=== PATIENT | female | born 1945 | race Caucasian/White ===

== ENCOUNTER → 2017-09-13 | Outpatient (CLI) | payer OTHER, BC ==
[~2017-09-13] VITALS: Ht 165.1 cm; Wt 99.8 kg
[~2017-09-13] MED LIST: AMLODIPINE BESY10 MG PO; CYMBALTA60 MG PO; HYDROCHLOROTHIA25 M2 PO; HYDROCODON-ACE1 EAC7 PO; MOBIC15 MG PO; OMEPRAZOLE 20 M20 M1 PO; POTASSIUM CHLO20 ME1 PO; SIMVASTATIN40 MG PO; SINGULAIR 10 MG10 M1 PO; ZOLPIDEM TARTRA10 MG PO
--- NOTE | ~2017-09-13 | P ---
[facility] [address] PROCEDURE REPORT Name: MILVIAKARTIK Jung Room #: REG [facility]#: [id number] Admission: 09/13/17 Attend Phys: Dustin Chiu Discharge: Date of : 49 Report #: [id number] THIS REPORT FOR: //name// CC: Dustin Bobo [facility] physician/PCP Mara Lewis MD DATE OF SERVICE: 09/13/2017 PROCEDURE PERFORMED: Colonoscopy. 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 She underwent an upper endoscopy by myself on 06/26/2017 which was negative other than biopsies positive for H. pylori and she was treated. There may be an increased risk for colorectal cancer as well, which is why the patient presents today for routine colonoscopy. She denies any symptoms. There is no family history of colon cancer. DESCRIPTION OF PROCEDURE: The risks and benefits of the procedure were explained to the patient, those risks including but not limited to bleeding, perforation, the risk of sedation. She understood these risks and gave informed consent. Sedation was given using propofol per anesthesia. Next, a digital rectal exam was initially performed which showed small external hemorrhoids, otherwise normal. Next, using a standard Fujinon colonoscope, the scope was placed in the patient's anus and advanced under direct vision to the cecum. The overall prep was excellent. The cecum and ileocecal valve were normal in appearance. Ascending, transverse, descending and sigmoid colon were all normal. The rectal mucosa was normal. On retroflexion, small nonbleeding internal hemorrhoids were noted. The scope was then withdrawn and the procedure terminated. The patient tolerated the procedure well. IMPRESSION: 1. Internal and external hemorrhoids. 2. Otherwise, normal colonoscopy. RECOMMENDATIONS: Repeat colonoscopy in 3 years due to CDH1 mutation. <ELECTRONICALLY SIGNED> By: Dustin Bobo MD 09/16/17 1407 1029 1944 Dustin Bobo MD /nt
== END | disposition home or self-care (01) ==
LOC: GI 09-04 09:18
DX: K64.8 Other hemorrhoids (principal); K64.4 Residual hemorrhoidal skin tags; K21.9 Gastro-esophageal reflux disease without esophagitis; I10 Essential (primary) hypertension; E78.00 Pure hypercholesterolemia, unspecified; M19.90 Unspecified osteoarthritis, unspecified site; G47.33 Obstructive sleep apnea (adult) (pediatric); F41.8 Other specified anxiety disorders; F32.89 Other specified depressive episodes; Z85.3 Personal history of malignant neoplasm of breast; Z87.19 Personal history of other diseases of the digestive system; Z96.653 Presence of artificial knee joint, bilateral; Z88.0 Allergy status to penicillin; Z88.8 Allergy status to other drugs, medicaments and biological substances; Z79.891 Long term (current) use of opiate analgesic; Z79.899 Other long term (current) drug therapy; Z98.890 Other specified postprocedural states
CPT/HCPCS: 62110

== ENCOUNTER → 2020-08-17 | Outpatient (CLI) | payer OTHER, BC ==
[~2020-08-17] MED LIST changes: +CEFPODOXIME PR200 M1 PO
== END ==
LOC: LAB 12:29
PROVIDERS: ATTEND Surgery
DX: Z01.812 Encounter for preprocedural laboratory examination (principal); Z20.828 Contact with and (suspected) exposure to other viral communicable diseases

== ENCOUNTER 2020-08-19 10:45 | Day surgery (SDC) | payer OTHER, BC ==
[2020-08-19] VITALS (11 sets, daily range): BP systolic 117–140; BP diastolic 66–76
[~2020-08-19] VITALS: Ht 165.1 cm; Wt 101.6 kg
[2020-08-19 12:15] LABS: CALCIUM 9.6 mg/dL (8.5-10.1); POTASSIUM 3.4 mmol/L (3.5-5.1)
--- NOTE | 2020-08-19 17:30 | NUR ---
Pt transferred to unit from recovery approx 1620. A&ox4. Pain controlled with prn pain meds. Lap sites c/d/i. IVF infusing. Family at bedside. Admission completed. Call light within reach. Will continue to monitor.
--- NOTE | 2020-08-20 06:07 | NUR ---
ASSUMED PT CARE AT 1900. PT IS A&OX4. PT IS A SBA TO THE RR. PT IV IS IN HER RIGHT FOREARM. PT CALLS OUT APPROPRIATELY FOR HELP. PT IS TOLERATING HER MEDS. HUNG BOTH ANTBX. CONTINUOUS FLUIDS GOING. HOURLY ROUNDING PERFORMED. WILL CONTINUE TO MONITOR.
[2020-08-20 07:11] VITALS: BP 129/69
--- NOTE | 2020-08-20 13:19 | O ---
[facility] [place] [address] OPERATIVE REPORT Name: KARTIK STEEL Room #: 447-P [facility]..#: [id number] Admission: 08/19/20 Attend Phys: Yusuf Malcolm MD Discharge: Date of : 49 Report #: [id number] THIS REPORT FOR: cc: Mara Kerr MD, Stany A. MD Chu, Peter Y. MD ~ DATE OF SERVICE: 08/19/2020 PREOPERATIVE DIAGNOSIS: Cholecystitis with cholelithiasis. POSTOPERATIVE DIAGNOSIS: Cholecystitis with cholelithiasis. PROCEDURES PERFORMED: Laparoscopic cholecystectomy with cholangiogram. ANESTHESIA: General anesthesia. COMPLICATIONS: None. ESTIMATED BLOOD LOSS: 5 mL. FINDINGS: The gallbladder has adhesions surrounding it. Multiple stones found in the gallbladder. On intraoperative cholangiogram, the patient has what looks like a duodenal diverticulum. SURGEON: Yusuf Malcolm MD COMPLICATIONS: None. PROCEDURE NOTE: With the patient under general anesthesia, abdomen was prepped and draped in sterile fashion. The patient received IV antibiotics. Time-out was performed. 0.25% Marcaine was used to anesthetize the skin and subcutaneous tissue at the trocar sites. The initial incision is made above the umbilicus due to the body habitus. Fascia was identified. Fascia was incised vertically. 0 Vicryl suture was placed on the fascia for retraction. Veress needle was then placed through the peritoneum. Abdominal cavity was insufflated with CO2. Pneumoperitoneum was established without difficulty. An 11 mm trocar was then placed under visualization into the pneumoperitoneum. No harm to underlying tissue. Two 5 mm trocars were placed in the right upper quadrant; another 5 mm trocar was placed in right epigastrium. The patient was placed in the reverse Trendelenburg position, right side up. Gallbladder was identified. The gallbladder is dilated. There is adhesion to the gallbladder proximally. There is quite a bit of fat that is stuck to the medial edge of the liver adjacent to where the gallbladder is identified. This adhesion is quite dense. The gallbladder was isolated. The gallbladder was followed down to the cystic duct. The peritoneum was dissected free, medially and laterally. Cystic duct was [facility] [address] [place] [address] OPERATIVE REPORT Name: KARTIK STEEL Room #: 447-P REG [facility].#: [id number] Admission: 08/19/20 Attend Phys: Yusuf Malcolm MD Discharge: Date of : 49 Report #: [id number] isolated. There is a folding of the gallbladder onto the cystic duct at the junction. The medial artery was also identified. Clip was placed in the cystic duct at the junction to the gallbladder. Opening was made in the cystic duct. Cholangiogram catheter was placed. Fluoroscopic cholangiogram was obtained. I could only get the tip of the catheter in. This was held with a clip. The injection did meet with resistance due to the catheter hitting the wall or fold on the cystic duct. I was able to see contrast injected into the cystic duct and then going to the common duct. Initially, the common duct filled out and quite a bit of the dye would not advance up into the hepatic duct. There appears to be good flow and I think there also appears to be a duodenal diverticulum present. Likelihood there is a poor sphincter tone here and the contrast just preferentially went distally, went down the duct into the duodenum. Filling upper duct was not visualized. I put the patient in a Trendelenburg position, did several more injections, and I was then able to see proximal hepatic duct show up. The cholangiogram catheter was then terminated. The catheter was then removed. The proximal cystic duct was clipped x 2. This was divided. There is a posterior lateral artery. This was isolated, clipped x 2 proximally and 1 distally and then divided. The main artery going to the medial part of the gallbladder was isolated, clipped x 2 proximally and 1 distally and then divided. Gallbladder was free from the liver bed. During the initial retraction of the gallbladder, there is some raw liver along the medial aspect of the gallbladder because of the fatty adhesion that was to this area. A small piece of Surgicel fibrillar was placed in this at the end. Gallbladder was retrieved through the infraumbilical port. Gallbladder was opened off the field contained multiple blackish looking stones in the gallbladder. No other lesions identified in the gallbladder. Liver bed was checked, and hemostasis obtained. Irrigation was aspirated out. Trocars removed. The fascia defect above the umbilicus was closed with [id number] 0 Vicryl x 2. Skin was irrigated, closed with 5-0 PDS. Steri-Strip and Band-Aids applied. The patient tolerated the procedure well and was taken to recovery room. <ELECTRONICALLY SIGNED> By: Yuusf Malcolm MD 08/20/20 1319 1623 1658 Yusuf Malcolm MD /nt
[2020-08-20 15:08] VITALS: BP 129/69
--- NOTE | 2020-08-20 15:40 | NUR ---
ASSUMED CARE OF THE PATIENT AT 0715, PATIENT ALERT AND ORIENTED X 4. PATIENT UP WITH SBA TO THE BATHROOM. PATIENT BENI PAIN AT START OF THE SHIFT. NO C/O NAUSEA, DIET UPGRADED TO SOFT/BLAND. PATIENT TOELRATED BREAKFAST AD LUNCH W/O DIFFICULTY. PATIENT DID C/O PAIN OF PAIN MID-MORNING, HYDROCODONE 1 TABLET GIVEN, WITH GOOD RELIEF. DR CASIANO HERE AFTER LUNCH PATIENT OK TO DISCHARGE TO HOME, NO SCRIPTS. PATIENT HAS PAIN MEDICATIONS AT [facility]. RIGHT FOREARM IV IN PLACE WITH IV FLUIDS. RIGHT FOREARM IV DISCONTINUED PRIOR TO DISCHARGE. ALL DISCHARGE PAPERWORK AND ALL PERSONAL BELONGINGS SENT WITH THE PATIENT. AT BEDSIDE, WILL TRANSPORT THE PATIENT HOME.
--- NOTE | 2020-08-22 17:08 | PATH ---
[facility] [address] [place] [address] PATHOLOGY RPT PROCEDURE Name: KARTIK BURGESS Room #: DEP [facility]..#: [id number] Admission: 08/19/20 Date of : 49 Discharge: 08/20/20 Report #: [id number] Path Case #: [id number] [facility] Accession Number: [id number] . 01 Material submitted: . gallbladder - GALLBLADDER . 01 Clinical history: . LAPAROSCOPIC CHOLECYSTECTOMY WITH GRAMS . CHOLECYSTITIS WITH CHOLELITHIASIS . 02 Diagnosis: Gallbladder, cholecystectomy: - Mild chronic cholecystitis. - Cholelithiasis. . (IUV:cuate; 08/22/2020) QMS 08/22/2020 1536 Local . 02 Electronically signed: . Brenda Price MD, Pathologist NPI- [id number] . 01 Gross description: . Received in formalin labeled "Kartik Burgess, gallbladder" is a previously opened cholecystectomy specimen measuring 8.8 x 3.5 x 1.4 cm. The serosa is allen-pink and smooth and the specimen is further opened to reveal pale allen velvety mucosa without polyps or masses. The average wall thickness is 0.1 cm. Multiple multifaceted black calculi are present within the container measuring in aggregate 3.2 x 0.6 x 0.3 cm and ranging from 0.4-0.6 cm in greatest dimension. Museum Curator sections of the fundus and body and the cystic duct margin are submitted in A1. ([facility]; 08/21/2020) [facility] 08/21/2020 0951 Local . 02 Pathologist provided ICD-10: K80.10 . 02 CPT . 358350 Specimen Comment: A courtesy copy of this report has been sent to [phone] Specimen Comment: Report sent to Performed at: [address] [id number] MD Sarwat Ureña MD Phone: [phone] [address] [address] PATHOLOGY RPT PROCEDURE Name: KARTIK BURGESS Room #: DEP [facility] David#: [id number] Admission: 08/19/20 Date of : 49 Discharge: 08/20/20 Report #: [id number] Path Case #: [id number] Performed at: [facility] [id number] MD Brenda Price MD Phone: [phone]
== END 2020-08-20 15:23 | disposition home or self-care (01) ==
LOC: OR 10:45 → TBA 11:00 → OR 13:35 → 4S 16:15 → OR 08-20 15:23
PROVIDERS: ATTEND Surgery
DX: K80.10 Calculus of gallbladder with chronic cholecystitis without obstruction (principal); I10 Essential (primary) hypertension; E78.00 Pure hypercholesterolemia, unspecified; K21.9 Gastro-esophageal reflux disease without esophagitis; F32.9 Major depressive disorder, single episode, unspecified; G47.30 Sleep apnea, unspecified; Z85.3 Personal history of malignant neoplasm of breast; Z79.899 Other long term (current) drug therapy; Z98.890 Other specified postprocedural states
CPT/HCPCS: 50010; 50101; 50411; 50555; 50558; 51489; 52265; 53307; 53310; 53312; 55245; 55317; 56462; 56525; 56526; 62110; 62900; 70005